=== PATIENT | female | born 1960 | race African-American/Black ===

== ENCOUNTER → 2016-07-08 | Outpatient (CLI) | payer BC ==
[2014-11-19 08:39] VITALS: BP 135/78
--- NOTE | 2016-07-08 16:39 | KCIC ---
Two-views of the clavicles and AC joints without and with weights Indication: Reason For Study Reason: Arthrosis of right AC joint / Spl. Instructions: Small raised area over right AC area x 1 month, no known injury, not painfu / History: Findings: The clavicles are intact. The AC joints are also intact normal alignment. There is no abnormal motion while the patient is holding weights in both hands. Impression: Normal exam of the AC joints. Electronically signed by: Andry Love (Jul 08, 2016 16:37:32)
== END | disposition home or self-care (01) ==
LOC: KCIC 15:49
PROVIDERS: ATTEND Family Medicine
DX: M19.011 Primary osteoarthritis, right shoulder (principal); M19.012 Primary osteoarthritis, left shoulder
CPT/HCPCS: 73050

== ENCOUNTER → 2017-11-23 | Outpatient (CLI) | payer BC | END | disposition home or self-care (01) | LOC: US 15:21 | DX: N95.0 Postmenopausal bleeding (principal) | CPT/HCPCS: 76830; 76856 ==